=== PATIENT | male | born 1950 | race Caucasian/White ===

== ENCOUNTER 2021-11-18 14:00 | Outpatient (RCR) | payer MEDICARE | END 2021-12-05 | LOC: RESP 14:00 | DX: J44.9 Chronic obstructive pulmonary disease, unspecified (principal) | CPT/HCPCS: 94799 ==

== ENCOUNTER 2021-12-18 09:00 | Outpatient (RCR) | payer MEDICARE | END 2022-01-04 | LOC: RESP 09:00 | DX: J44.9 Chronic obstructive pulmonary disease, unspecified (principal) | CPT/HCPCS: 94626 ×8; G0238 ×8 ==

== ENCOUNTER 2022-01-06 09:25 | Outpatient (RCR) | payer MEDICARE | END 2022-02-04 | LOC: RESP 09:25 | DX: J44.9 Chronic obstructive pulmonary disease, unspecified (principal) | CPT/HCPCS: 94626 ×7; G0238 ×7 ==

== ENCOUNTER 2022-02-05 13:20 | Outpatient (RCR) | payer MEDICARE | END 2022-03-06 | LOC: RESP 13:20 | PROVIDERS: ATTEND Internal Medicine | DX: J44.9 Chronic obstructive pulmonary disease, unspecified (principal) | CPT/HCPCS: 94626 ×6; G0238 ×6 ==

== ENCOUNTER 2022-03-12 10:23 | Outpatient (RCR) | payer MEDICARE | END 2022-04-06 | LOC: RESP 10:23 | PROVIDERS: ATTEND Internal Medicine | DX: J44.9 Chronic obstructive pulmonary disease, unspecified (principal) | CPT/HCPCS: 94626 ×4; G0238 ×4 ==

== ENCOUNTER 2022-04-16 08:52 | Outpatient (RCR) | payer MEDICARE | END 2022-05-07 | LOC: RESP 08:52 | PROVIDERS: ATTEND Internal Medicine | DX: J44.9 Chronic obstructive pulmonary disease, unspecified (principal) | CPT/HCPCS: 94626 ×7; G0238 ×7 ==

== ENCOUNTER 2022-05-19 16:46 | Outpatient (RCR) | payer MEDICARE | END 2022-06-06 | LOC: RESP 16:46 | PROVIDERS: ATTEND Internal Medicine | DX: J44.9 Chronic obstructive pulmonary disease, unspecified (principal) | CPT/HCPCS: 94626 ×4; 94799; G0238 ×4 ==